=== PATIENT | female | born 1985 | race Caucasian/White ===

== ENCOUNTER 2020-05-24 09:45 | Inpatient (IN) | payer MEDICAID, SELFPAY ==
[~2020-05-24] VITALS: Ht 152.4 cm; Wt 86.2 kg
[2020-05-24] MEDS ORDERED: OXYTOCIN/0.9 % SODIUM CHLORIDE 1,000 ML IV SCH (10:24)
[2020-05-24] MEDS ORDERED: LR 1,000 ML IV ONE (10:24)
[2020-05-24] MEDS ORDERED: AMPICILLIN SODIUM 2 GM in NS 100 ML IV ONE (10:30)
[2020-05-24] MEDS ORDERED: TERBUTALINE SULFATE 1 MG/ML VIAL SUBCUT ONE (10:30)
[2020-05-24] MEDS: LR 1,000 ML IV SCH (10:40)
[2020-05-24 11:16] LABS: BASOPHILS % (AUTO) 0.3 % (0.0-2.0); EOSINOPHILS # (AUTO) 0.1 K/uL (0.0-0.4); EOSINOPHILS % (AUTO) 0.7 % (0.0-4.0); HEMATOCRIT 34.9 % (36-48); HEMOGLOBIN 11.7 g/dL (12.0-16.0); LYMPHOCYTES # (AUTO) 1.5 K/uL (1.0-5.5); MEAN CORPUSCULAR HEMOGLOBIN 30 pg (27-31); MEAN CORPUSCULAR HGB CONC 33 % (32-36); MEAN CORPUSCULAR VOLUME 90 fL (79.0-98.0); MONOCYTES # (AUTO) 0.4 K/uL (0.0-1.0); MONOCYTES % (AUTO) 4.6 % (1.7-9.3); NEUTROPHILS # (AUTO) 7.7 K/uL (1.8-7.7); NEUTROPHILS % (AUTO) 79.4 % (40.0-70.0); PLATELET COUNT (AUTO) 237 K/uL (130-430); RED BLOOD CELL COUNT(AUTO) 3.87 MIL/uL (4.2-6.2); RED CELL DISTRIBUTION WIDTH 14.5 % (9.0-15.0); WHITE BLOOD COUNT (AUTO) 9.7 K/uL (4.8-10.8)
[2020-05-24] MEDS: AMPICILLIN SODIUM 1 GM in NS 50 ML IV SCH ×3 (15:21→23:30)
[2020-05-24] MEDS ORDERED: OXYTOCIN 10 UNIT/ML VIAL IM ONE (21:00)
[2020-05-25] MEDS: AMPICILLIN SODIUM 1 GM in NS 50 ML IV SCH ×3 (03:30→12:10)
[2020-05-25] MEDS: LR 1,000 ML IV SCH (06:00)
[2020-05-25] MEDS ORDERED: ROPIVACAINE HCL/PF 0.2% 200 ML ONE (08:34)
[2020-05-25] MEDS ORDERED: fentaNYL CITRATE/PF 100 MCG/2 ML AMP ONE ×2 (08:34→17:01)
[2020-05-25] MEDS ORDERED: LR 1,000 ML IV ONE (14:01)
[2020-05-25] MEDS ORDERED: CEFAZOLIN 2 GM IVPB PREMIX 50 ML IV ONE (14:15)
[2020-05-25] MEDS ORDERED: METOCLOPRAMIDE HCL 10 MG/2 ML VIAL IVP ONE (14:15)
[2020-05-25] MEDS ORDERED: CITRIC ACID/SODIUM CITRATE 30 ML UDC PO ONE (14:15)
[2020-05-25] MEDS ORDERED: LR 500 ML IV ONE (15:52)
[2020-05-25] MEDS ORDERED: FENT2mCg/mL-ROPIVA0.2%/NS EPID 200 ML EP SCH (16:00)
[2020-05-25] MEDS ORDERED: DIPHENHYDRAMINE INJ 50 MG/ML VIAL IVP PRN (16:00)
[2020-05-25] MEDS ORDERED: ONDANSETRON HCL 4 MG/2 ML VIAL IVP PRN (16:00)
[2020-05-25] MEDS ORDERED: NALBUPHINE HCL 10 MG/ML AMP IVP PRN (16:00)
[2020-05-25] MEDS ORDERED: MORPHINE SULFATE 10MG/10ML PF AMP EP SCH (16:00)
[2020-05-25] MEDS ORDERED: fentaNYL CITRATE/PF 100 MCG/2 ML AMP IVP PRN (16:00)
[2020-05-25] MEDS ORDERED: KETOROLAC TROMETHAMINE 60 MG/2 ML VIAL IM PRN (16:00)
[2020-05-25] MEDS ORDERED: NALOXONE HCL 0.4 MG/ML AMP (NARCAN) IVP PRN ×2 (16:00)
[2020-05-25 16:02] VITALS: BP_SYST 132
[2020-05-25] MEDS ORDERED: METHYLERGONOVINE MALEATE 0.2 MG/ML AMP ONE (16:07)
[2020-05-25] MEDS: fentaNYL CITRATE/PF 100 MCG/2 ML AMP IVP PRN ×2 (16:42→16:47)
[2020-05-25] MEDS ORDERED: OXYTOCIN/0.9 % SODIUM CHLORIDE 1,000 ML IV ONE (19:48)
[2020-05-25] MEDS ORDERED: LANOLIN 7 GM OINT. TP PRN (20:00)
[2020-05-25] MEDS ORDERED: SIMETHICONE 80 MG TAB.CHEW PO PRN (20:00)
[2020-05-25] MEDS: ceFAZolin SODIUM 2 GM in D5W 100 ML IV SCH (21:56)
[2020-05-25] MEDS ORDERED: ceFAZolin SODIUM 1 GM VIAL ONE (22:09)
[2020-05-26] MEDS: ceFAZolin SODIUM 2 GM in D5W 100 ML IV SCH ×2 (06:31→14:05)
[2020-05-26] MEDS ORDERED: CEFAZOLIN 2 GM IVPB PREMIX 50 ML IV ONE (06:34)
[2020-05-26 08:20] LABS: BASOPHILS # (AUTO) 0.1 K/uL (0.0-0.2); BASOPHILS % (AUTO) 0.5 % (0.0-2.0); EOSINOPHILS % (AUTO) 0.1 % (0.0-4.0); HEMATOCRIT 26.9 % (36-48); HEMOGLOBIN 8.9 g/dL (12.0-16.0); LYMPHOCYTES # (AUTO) 1.2 K/uL (1.0-5.5); LYMPHOCYTES % (AUTO) 9.5 % (20.5-51.5); MEAN CORPUSCULAR HEMOGLOBIN 30 pg (27-31); MEAN CORPUSCULAR HGB CONC 33 % (32-36); MEAN CORPUSCULAR VOLUME 90 fL (79.0-98.0); MONOCYTES # (AUTO) 0.7 K/uL (0.0-1.0); MONOCYTES % (AUTO) 5.4 % (1.7-9.3); NEUTROPHILS # (AUTO) 10.5 K/uL (1.8-7.7); NEUTROPHILS % (AUTO) 84.5 % (40.0-70.0); PLATELET COUNT (AUTO) 168 K/uL (130-430); RED BLOOD CELL COUNT(AUTO) 2.99 MIL/uL (4.2-6.2); WHITE BLOOD COUNT (AUTO) 12.4 K/uL (4.8-10.8)
[2020-05-26] MEDS: DOCUSATE SODIUM 100 MG CAPSULE PO PRN ×2 (12:36→18:03)
[2020-05-26] MEDS: SENNOSIDES/DOCUSATE SODIUM 1 TAB TABLET(SENOKOT-S) PO PRN ×2 (12:37→18:03)
[2020-05-26] MEDS: IBUPROFEN 600 MG TABLET PO SCH ×2 (12:37→18:03)
[2020-05-26] MEDS ORDERED: OXYCODONE/ACETAMINOPHEN 5-325 TABLET PO PRN (20:15)
[2020-05-26] MEDS ORDERED: NALOXONE HCL 0.4 MG/ML AMP (NARCAN) IVP PRN (20:15)
[2020-05-26] MEDS ORDERED: HYDROcodone/ACETAMIN 5-325 MG TAB (NORCO/ VICODIN) PO PRN (20:15)
[2020-05-26] MEDS: OXYCODONE/ACETAMINOPHEN 5-325 TABLET PO PRN (20:22)
[2020-05-27] MEDS: OXYCODONE/ACETAMINOPHEN 5-325 TABLET PO PRN (09:39)
[2020-05-27] MEDS: IBUPROFEN 600 MG TABLET PO SCH ×2 (12:20)
[2020-05-27 19:09] LABS: FTA-Ab (T PALLIDUM) Non Reactive (Non Reactive)
== END 2020-05-27 12:30 | disposition home or self-care (01) | DRG 540 ==
LOC: SPU 09:45
PROVIDERS: ADMIT Obstetrics & Gynecology; ATTEND Obstetrics & Gynecology
PROC: 10D00Z1 Extraction of Products of Conception, Low, Open Approach (ICD-10-PCS; principal; 2020-05-25 15:15)
DX: O62.2 Other uterine inertia (principal); Z37.0 Single live birth; O24.429 Gestational diabetes mellitus in childbirth, unspecified control; Z20.828 Contact with and (suspected) exposure to other viral communicable diseases
CPT/HCPCS: 36415; 76805-TC; 82962; 85025; 86592; 86780; 86886; 86900; 86901; J0290; J0690; J1885; J2210; J2405; J2590; J3010; J7060; J7120; U0003-CS